=== PATIENT | male | born 1955 | race Caucasian/White ===

== ENCOUNTER 2017-05-23 07:56 | Day surgery (SDC) | payer OTHER ==
[~2017-05-23] VITALS: Ht 170.2 cm; Wt 88.8 kg
[~2017-05-23 07:56] MED LIST: HYDROCODONE/APAP; TRAZADONE HYDR100 MG PO
[2017-05-23 08:16] VITALS: BP 140/100; PULSE 74; TEMP 97
[2017-05-23] MEDS ORDERED: NORCO 325 MG-7.1 TAB PO (08:33)
[2017-05-23] MEDS ORDERED: AMBIEN 5MG TABLE5 MG PO (08:33)
[2017-05-23 09:36] VITALS: BP 131/100; PULSE 70; TEMP 97.5
[2017-05-23 09:45] VITALS: BP 107/93; PULSE 66
[2017-05-23 10:00] VITALS: BP 121/94; PULSE 66
[2017-05-23 10:15] VITALS: BP 142/94; PULSE 62
[2017-05-23 10:30] VITALS: BP 125/88; PULSE 69
== END 2017-05-23 10:45 | disposition home or self-care (01) ==
LOC: SDCO 07:56
DX: Z12.11 Encounter for screening for malignant neoplasm of colon (principal); Z86.010 Personal history of colon polyps
CPT/HCPCS: J2250; J3010; J7030

== ENCOUNTER → 2022-08-22 | Outpatient (CLI) | payer OTHER ==
[~2022-08-22] MED LIST changes: +AMBIEN 5MG TABLE5 MG PO; +NORCO 325 MG-7.1 TAB PO
== END ==
LOC: COL.RAD 12:51
DX: Z12.2 Encounter for screening for malignant neoplasm of respiratory organs (principal); F17.210 Nicotine dependence, cigarettes, uncomplicated

== ENCOUNTER 2022-11-22 08:20 | Day surgery (SDC) | payer OTHER ==
[~2022-11-22] VITALS: Ht 170.2 cm; Wt 84.5 kg
[2022-11-22] MEDS ORDERED: BENICAR 20MG TA20 MG PO (08:39)
[2022-11-22] MEDS ORDERED: HCTZ12.5TAB PO (08:39)
[2022-11-22] MEDS ORDERED: MOBIC15 MG PO (08:40)
[2022-11-22] MEDS ORDERED: LIPITOR 10MG10 MG PO (08:40)
[2022-11-22] MEDS ORDERED: CENTRUM SILVER1 TAB PO (08:41)
[2022-11-22 08:47] VITALS: BP 97/58; PULSE 92; TEMP 97.2
[2022-11-22 09:55] VITALS: BP 75/61; PULSE 80; TEMP 97.1
[2022-11-22 10:00] VITALS: BP 89/61; PULSE 88
[2022-11-22 10:15] VITALS: BP 105/71; PULSE 86
[2022-11-22 10:30] VITALS: BP 100/71; PULSE 77
[2022-11-22 10:45] VITALS: BP 108/73; PULSE 79
== END 2022-11-22 10:50 | disposition home or self-care (01) ==
LOC: SDCO 08:20
DX: Z12.11 Encounter for screening for malignant neoplasm of colon (principal); Z86.010 Personal history of colon polyps; K57.30 Diverticulosis of large intestine without perforation or abscess without bleeding; F17.210 Nicotine dependence, cigarettes, uncomplicated
CPT/HCPCS: J2704; J7120